=== PATIENT | female | born 2000 | race Caucasian/White ===

== ENCOUNTER 2021-09-16 01:28 | Emergency (ER) | payer SELFPAY ==
[~2021-09-16] VITALS: Ht 152.4 cm; Wt 63.6 kg
[2021-09-16 03:58] VITALS: BP 103/68; PULSE 88; TEMP 98
== END 2021-09-16 03:58 | disposition home or self-care (01) ==
LOC: COL.ER 01:28
DX: S09.90XA Unspecified injury of head, initial encounter (principal); F17.290 Nicotine dependence, other tobacco product, uncomplicated; V49.40XA Driver injured in collision with unspecified motor vehicles in traffic accident, initial encounter; Y92.410 Unspecified street and highway as the place of occurrence of the external cause